=== PATIENT | female | born 1970 | race Caucasian/White ===

== ENCOUNTER 2017-03-05 06:18 | Observation (INO) | payer BC ==
[2017-03-04 13:52] LABS: HEMATOCRIT 38.6 % (34.6-47.8); HEMOGLOBIN 12.5 g/dL (11.7-16.4); WHITE BLOOD COUNT 9.4 x10^3/uL (3.4-10)
[2017-03-04 14:00] LABS: ASPARTATE AMINO TRANSFERASE 8 U/L (15-37); BLOOD UREA NITROGEN 17 mg/dL (7-18)
[~2017-03-05] VITALS: Ht 177.8 cm; Wt 105.3 kg
[~2017-03-05 06:18] MED LIST: ASPI-496 PO; LORA1TAB PO; SOTA80TA PO
[2017-03-05] MEDS ORDERED: SODIUM CHLORIDE 0.9% 1,000 ML IV SCH (06:33)
[2017-03-05] MEDS ORDERED: SODIUM CHLORIDE 0.9% 1,000 ML IV ONE (07:00)
[2017-03-05] MEDS ORDERED: MIDAZOLAM 1 MG/ML, 5ML ONE (07:38)
[2017-03-05] MEDS ORDERED: FENTANYL PF 100 MCG/2ML ONE (07:38)
[2017-03-05] MEDS ORDERED: ISOPROTERENOL 0.2MG/ML, 5ML ONE (07:43)
[2017-03-05] MEDS ORDERED: PROTAMINE SULFATE 10 MG/ML, 5ML ONE (07:43)
[2017-03-05] MEDS ORDERED: HEPARIN 1,000 UNITS/ML, 10ML ONE (07:43)
[2017-03-05] MEDS ORDERED: LIDOCAINE 2%, 20ML ONE (07:50)
[2017-03-05] MEDS ORDERED: SUCCINYLCHOLINE 20 MG/ML, 10ML ONE (08:01)
[2017-03-05] MEDS ORDERED: DEXAMETHASONE 4 MG/ML, 1ML ONE (08:01)
[2017-03-05] MEDS ORDERED: PROPOFOL 10 MG/ML, 20ML ONE (08:01)
[2017-03-05] MEDS ORDERED: ONDANSETRON 2MG/ML, 2ML ONE (08:01)
[2017-03-05] MEDS ORDERED: LORazepam 1MG TABLET PO PRN (11:00)
[2017-03-05] MEDS ORDERED: ZOLPIDEM 5MG TABLET PO PRN (11:00)
[2017-03-05] MEDS ORDERED: MEPERIDINE/PF 25MG/0.5ML IVPush PRN (11:30)
[2017-03-05] MEDS ORDERED: FENTANYL PF 100 MCG/2ML IV PRN (11:30)
[2017-03-05] MEDS ORDERED: OXYcodone 5 MG/5 ML ORAL.SOL UDC PO PRN (11:30)
[2017-03-05] MEDS ORDERED: HYDROmorphone 1 MG/ML, 1ML IV PRN (11:30)
[2017-03-05] MEDS ORDERED: ONDANSETRON 2MG/ML, 2ML IVPush PRN (11:30)
[2017-03-05] MEDS ORDERED: MIDAZOLAM 1 MG/ML, 2ML IV PRN (11:30)
[2017-03-05] MEDS ORDERED: ACETAMINOPHEN 325 MG TABLET PO PRN (11:30)
[2017-03-05] MEDS ORDERED: PROMETHAZINE 25 MG/ML, 1ML IV PRN (11:30)
[2017-03-05] MEDS: APIXABAN 5 MG TABLET PO SCH ×2 (11:53→22:18)
[2017-03-05] MEDS ORDERED: MEPERIDINE/PF 25MG/0.5ML ONE (11:57)
[2017-03-05 14:50] VITALS: BP 114/79
[2017-03-05 20:09] VITALS: BP 97/66
[2017-03-05] MEDS ORDERED: SOTALOL 80MG TABLET PO SCH (21:00)
[2017-03-05 21:56] VITALS: BP_SYST 96; BP_SYST 99; BP_DIAS 62; BP_DIAS 68
[2017-03-05] MEDS: SOTALOL 80MG TABLET PO SCH (22:18)
[2017-03-06 02:11] VITALS: BP 95/66
[2017-03-06 07:32] VITALS: BP 99/64
[2017-03-06] MEDS ORDERED: ASPIRIN 81 MG TABLET EC PO SCH (09:00)
[2017-03-06 09:54] VITALS: BP 95/65
[2017-03-06] MEDS: SOTALOL 80MG TABLET PO SCH (09:59)
[2017-03-06] MEDS: APIXABAN 5 MG TABLET PO SCH (09:59)
[2017-03-06] MEDS ORDERED: APIX5TAB PO (10:21)
[2017-03-06 12:46] VITALS: BP 91/60
== END 2017-03-06 17:20 | disposition home or self-care (01) ==
LOC: CACL 06:18 → ORIP 10:49 → 5SO 12:34
PROVIDERS: ADMIT Internal Medicine Cardiovascular Disease; ATTEND Internal Medicine Cardiovascular Disease
DX: I48.91 Unspecified atrial fibrillation (principal)
CPT/HCPCS: 36415; 80053; 85025; 85347; 85610; 85730; 93005; 93306; 93312; 93321; 93325; 93613; 93656; 93662; C1730; C1732; C1759; C1766; C1893; C1894; G0378; J0330; J1100; J1644; J2175; J2250; J2405; J2704; J2720; J3010; J3490